=== PATIENT | female | born 1950 | race Caucasian/White ===

== ENCOUNTER → 2021-08-12 | Outpatient (CLI) | payer OTHER, BC ==
[~2021-08-12] MED LIST: ADVIL200 M3 PO; CALCIUM GUMMIE1 EACH PO; DILTIAZEM 24HR120 M1 PO; FLECAINIDE ACE150 MG PO; HYDRALAZINE 5050 MG PO; HYDROCHLOROTHIA25 M1 PO; LOSARTAN POTAS100 MG PO; OMEPRAZOLE40 MG PO; PRAMIPEXOLE0.125 MG PO; ROSUVASTATIN CA20 MG PO; SERTRALINE HCL100 MG PO; SUPER THERAVIT1 EACH PO; TYLENOL PM EX-1 EACH PO
== END ==
LOC: LAB 07:54
PROVIDERS: ATTEND Student in an Organized Health Care Education/Training Program
DX: Z01.812 Encounter for preprocedural laboratory examination (principal); Z20.822 Contact with and (suspected) exposure to COVID-19

== ENCOUNTER → 2021-08-14 | Outpatient (CLI) | payer OTHER, BC ==
[~2021-08-14] VITALS: Ht 162.6 cm; Wt 77.1 kg
--- NOTE | 2021-08-15 14:01 | P ---
[facility] [place] [address] PROCEDURE REPORT Name: BENJAMIN CHAVEZ Room #: IRVIN EDEN Errol#: [id number] Admission: 08/14/21 Attend Phys: Rufino Padilla Discharge: Date of : 48 Report #: [id number] THIS REPORT FOR: cc: Celia Lara MD, Sara A. MD McElhinney, Christian C. MD ~ cc: Celia Lara MD DATE OF SERVICE: 08/14/2021 PROCEDURE PERFORMED: Colonoscopy with biopsies. HISTORY OF PRESENT ILLNESS: The patient is a 70-year-old female here for routine screening colonoscopy, last colonoscopy 10 years ago and negative. She denies any symptoms, no family history of colon cancer. DESCRIPTION OF PROCEDURE: The risks and benefits of the procedure were explained to the patient, those risks including but not limited to bleeding, perforation and the risk of sedation. She understood these risks and gave informed consent. Sedation was given using propofol per anesthesia. Next, a digital rectal exam was initially performed, which was normal. Next, using a standard Olympus colonoscope, the scope was placed in the patient's anus and advanced under direct vision to the cecum. The overall prep was good. The cecum and ileocecal valve were normal in appearance. In the ascending colon, 2 polyps were noted, 3-4 mm in size, both removed with cold forceps, otherwise normal. The transverse and descending colon were normal. A few small diverticula were noted in the sigmoid colon. No evidence of inflammation, otherwise normal. The rectal mucosa was normal. On retroflexion, small nonbleeding internal hemorrhoids were noted. The scope was then withdrawn and the procedure terminated. The patient tolerated the procedure well. IMPRESSION: 1. Two small colonic polyps. 2. Sigmoid diverticulosis. 3. Internal hemorrhoids. 4. Otherwise, normal colonoscopy. RECOMMENDATIONS: 1. Await biopsy results. 2. If polyps are hyperplastic, repeat in 10 years; if adenomatous polyps, repeat in [address] [address] PROCEDURE REPORT Name: BENJAMIN CHAVEZ Room #: IRVIN Norton#: [id number] Admission: 08/14/21 Attend Phys: Rufino Padilla Discharge: Date of : 48 Report #: [id number] Thank you for allowing me to participate in her care. <ELECTRONICALLY SIGNED> By: Rufino Singh MD 08/15/21 1401 0750 [id number] Rufino Singh MD /nt
--- NOTE | 2021-08-19 14:07 | PATH ---
[facility] [address] [place] [address] PATHOLOGY RPT PROCEDURE Name: NADIA CHAVEZ Paramjit Room #: REG KAREY Norton#: [id number] Admission: 08/14/21 Date of : 48 Discharge: Report #: [id number] Path Case #: [id number] [facility] Accession Number: [id number] . 01 Material submitted: . colon - ASCENDING COLON POLYPS X2. Modifiers: ascending, X2 . 01 Clinical history: . COLONOSCOPY COLON CANCER SCREENING DIVERTICULOSIS, INTERNAL HEMORRHOIDS . 02 Diagnosis: Colonic mucosa (ascending colon polyps): - Tubular adenoma and hyperplastic polyps identified. (ELISABET:jordyn; 08/17/2021) MBR 08/17/2021 1754 Local . 02 Comment: We find no evidence of high grade dysplasia or of malignancy. (ELISABET:jordyn; 08/17/2021) . 02 Electronically signed: . Harman Crenshaw MD, Pathologist NPI- [id number] . 01 Gross description: . The specimen is received in formalin, labeled "Nadia Chavez, ascending colon polyp x2". Received are 3 segments of pale stuart tissue ranging in size from 0.2-0.3 cm in maximum dimension. The specimen is entirely submitted in cassette A1. ([facility]; 08/14/2021) NRI/NRI 08/14/2021 [facility] Local . 02 Pathologist provided ICD-10: D12.2, K63.5 . 02 CPT . 800000 Specimen Comment: A courtesy copy of this report has been sent to [phone], [phone] Specimen Comment: [phone] Specimen Comment: Report sent to / DR MANCILLA Specimen Comment: A duplicate report has been generated due to demographic updates. Performed at: [place] [address] PATHOLOGY RPT PROCEDURE Name: NADIA CHAVEZ Room #: [facility]#: [id number] Admission: 08/14/21 Date of : 48 Discharge: Report #: [id number] Path Case #: [id number] [address] [id number] MD Adria Peters MD Phone: [phone] Performed at: [address] [place], [place] [id number] MD Harman Crenshaw MD Phone: [phone]
== END | disposition home or self-care (01) ==
LOC: GI
PROVIDERS: ATTEND Specialist
DX: Z12.11 Encounter for screening for malignant neoplasm of colon (principal); D12.2 Benign neoplasm of ascending colon; K57.30 Diverticulosis of large intestine without perforation or abscess without bleeding; K64.8 Other hemorrhoids; I10 Essential (primary) hypertension; I48.91 Unspecified atrial fibrillation; K21.9 Gastro-esophageal reflux disease without esophagitis; E78.00 Pure hypercholesterolemia, unspecified; Z98.890 Other specified postprocedural states; Z79.899 Other long term (current) drug therapy; Z95.0 Presence of cardiac pacemaker; Z79.01 Long term (current) use of anticoagulants; Z88.2 Allergy status to sulfonamides
CPT/HCPCS: 62110; 62900